=== PATIENT | male | born 1980 | race Caucasian/White ===

== ENCOUNTER 2022-10-29 10:37 | Emergency (ER) | payer MEDICAID ==
[~2022-10-29] VITALS: Ht 167.6 cm; Wt 83.9 kg
[2022-10-29 10:47] VITALS: BP 145/86; PULSE 66; RESP 18; TEMP 97.8; O2SAT 100
[2022-10-29 10:59] VITALS: O2SAT 100
[2022-10-29] MEDS ORDERED: IBUPROFEN 400 MG TAB PO ONE (11:05)
[2022-10-29] MEDS ORDERED: NAPR-1704 PO (11:51)
== END 2022-10-29 12:07 | disposition home or self-care (01) ==
LOC: MED 10:37
DX: S63.656A Sprain of metacarpophalangeal joint of right little finger, initial encounter (principal); X58.XXXA Exposure to other specified factors, initial encounter; Y93.89 Activity, other specified; Y92.89 Other specified places as the place of occurrence of the external cause; Y99.8 Other external cause status
CPT/HCPCS: 73130; 99283